=== PATIENT | female | born 1975 | race Caucasian/White ===

== ENCOUNTER 2017-12-12 14:44 | Emergency (ER) | payer OTHER ==
[2017-12-12 15:02] VITALS: BP 142/89
[2017-12-12] MEDS ORDERED: Ketorolac INJ* 60 MG/2 ML VIAL IM ONE (15:13)
--- NOTE | 2017-12-12 15:31 | UC ---
Fabiola Ag Rebecca, scribed for Jason Kenyon MD on 12/12/17 at 1515 . Back Pain HPI - HPI Summary HPI Summary: Pt is a 42 y/o F who presents to [facility] c/o left upper back pain. Sx began about 1 hour [employer] after the pt had opened a curtain with the left arm. Pain is currently severe, ranked 10/10 and characterized as sharp. Pt reports that there is one area that is particularly painful to palpation. Sx aggravated by movement and palpation, alleviated by nothing. - History of Current Complaint Chief Complaint: UCBackPain Stated Complaint: SHOULDER INJURY Time Seen by Provider: 12/12/17 15:07 Hx Obtained From: Patient Hx Last Menstrual Period: 12/27/17 Onset/Duration: Lasting Hours - 1 hour, Still Present Severity Currently: Severe Pain Intensity: 10 Pain Scale Used: 0-10 Numeric Back Pain: Is Discrete @ - Left upper back Character: Sharp Aggravating Factor(s): Movement, Other - Palpation Alleviating Factor(s): Nothing Associated Signs And Symptoms: Positive: Negative - Allergies/Home Medications Allergies/Adverse Reactions: Allergies Allergy/AdvReac Type Severity Reaction Status Date / Time MS Penicillins [Penicillins] Allergy Severe UNK Verified 06/01/15 08:37 Penicillins Allergy Severe Unknown Verified 12/12/17 15:03 Reaction Details cephalexin Allergy Intermediate Rash Verified 12/12/17 15:03 Home Medications: Home Medications Magnesium Oxide TAB* [MagOx 400 TAB*] 400 mg PO DAILY 12/12/17 [History Confirmed 12/12/17] Omeprazole 20 mg PO DAILY WITH MEAL 12/12/17 [History Confirmed 12/12/17] PMH/Surg Hx/FS Hx/Imm Hx - Additional Past Medical History Additional PMH: PMHx: Arthritis Cardiovascular History: Hypertension Respiratory History: Asthma Other History Of: Negative For: Anticoagulant Therapy - Surgical History Surgical History: Yes Surgery Procedure, Year, and Place: R knee cartilage removal; gall bladder; appendix; ; TUBAL - Family History Known Family History: Positive: Cardiac Disease, Hypertension, Other - Lung CA ( mother), mesothelioma (sister) Negative: Diabetes - Social History Alcohol Use: Occasionally Substance Use Type: None Smoking Status (MU): Never Smoked Tobacco Review of Systems Constitutional: Negative Skin: Negative Eyes: Negative ENT: Negative Respiratory: Negative Cardiovascular: Negative Gastrointestinal: Negative Genitourinary: Negative Motor: Negative Neurovascular: Negative Musculoskeletal: Other: - Left upper back pain Neurological: Negative Psychological: Negative All Other Systems Reviewed And Are Negative: Yes Physical Exam - Summary Physical Exam Summary: VITAL SIGNS: Reviewed. GENERAL: ~Patient is a well developed and nourished female who is lying comfortable in the stretcher. ~Patient is not in any acute respiratory distress. HEAD AND FACE: Normocephalic EYES: PERRLA, EOMI x 2. EARS: Hearing grossly intact. MOUTH: Oropharynx within normal limits. NECK: Supple, trachea is midline, no adenopathy, no JVD, no carotid bruit. CHEST: Symmetric, no tenderness at palpation LUNGS: Clear to auscultation bilaterally. No wheezing or crackles. CVS: Regular rate and rhythm, S1 and S2 present, no murmurs or gallops appreciated. ABDOMEN: Soft, non-tender. Bowel sounds are normal. No abdominal abnormal pulsations. EXTREMITIES: Full ROM in all major joints, no edema, no cyanosis or clubbing. Paraspinal muscle tenderness in the left thoracic spin, which is reproducible with palpation. NEURO: Alert and oriented x 3. No acute neurological deficits. Speech is normal and follows commands. SKIN: Dry and warm Triage Information Reviewed: Yes Vital Signs: Initial Vital Signs Temp 98.8 F 12/12/17 14:55 Pulse 88 12/12/17 14:55 Resp 18 12/12/17 14:55 BP 142/89 12/12/17 14:55 Pulse Ox 100 12/12/17 14:55 Vital Signs Reviewed: Yes Back Pain Course/Dx - Course Course Of Treatment: Pt is a 42 y/o F who presents to [facility] c/o left upper back pain. Sx began about 1 hour [employer] after the pt had opened a curtain with the left arm. Pain is currently severe, ranked 10/10 and characterized as sharp. Pt reports that there is one area that is particularly painful to palpation. Sx aggravated by movement and palpation, alleviated by nothing. The pain is musculoskeletal. Gave the patient Toradol for the pain. I will discharge her with a prescription for Ibuprofen and Robaxin and follow up with PCP. The patient was found to have increased BP in . The patient will follow up with PCP for better control of BP. I discussed all the findings and test results with the patient. Patient was instructed to return to the urgent care or go to ER immediately if any of the symptoms return or worsens. Plan of care was discussed with the patient, and patient understands and agrees. All questions were answered to patient satisfaction. There were no further complaints or concerns. - Differential Dx/Diagnosis Differential Diagnosis/HQI/PQRI: Fracture, Herniated Disc, Strain, Sprain Provider Diagnoses: Upper back pain Discharge - Sign-Out/Discharge Documenting (check all that apply): Discharge/Admit/Transfer - Discharge - Discharge Plan Condition: Stable Disposition: HOME Prescriptions: Ibuprofen TAB* [Motrin TAB* 600 MG] 600 mg PO Q8H PRN #20 tab PRN Reason: Pain Methocarbamol TAB* [Robaxin 500 MG TAB*] 750 mg PO TID PRN #12 tab PRN Reason: Pain Patient Education Materials: Arthralgia (ED), Back Pain (ED) Referrals: [facility] [place] [facility] REFERRAL [Outside] No Primary Care Phys,NOPCP [Primary Care Provider] - Additional Instructions: FOLLOW UP WITH YOUR PRIMARY CARE PROVIDER WITHIN ONE WEEK FOR HIGH BLOOD PRESSURE NOTED TODAY. RETURN TO URGENT CARE OR THE ED FOR ANY WORSENING OR NEW SYMPTOMS. - Billing Disposition and Condition Condition: STABLE Disposition: HOME The documentation as recorded by the Fabiola chavez Rebecca accurately reflects the service I personally performed and the decisions made by , Jason Kenyon MD.
== END 2017-12-12 15:35 | disposition home or self-care (01) ==
LOC: UCEAST 14:44
DX: M54.6 Pain in thoracic spine (principal); I10 Essential (primary) hypertension; J45.909 Unspecified asthma, uncomplicated; Z88.1 Allergy status to other antibiotic agents; Z88.0 Allergy status to penicillin
CPT/HCPCS: 99212; G0463; J1885

== ENCOUNTER 2018-10-10 09:59 | Emergency (ER) | payer OTHER ==
--- NOTE | 2018-10-10 10:24 | ED ---
HPI Chest Pain - HPI Summary HPI Summary: A 43 y/o female brought in by [facility] ambulance presents to [facility] with a chief complaint of chest pain that started out as right shoulder pain the night of 02/20, changing to mid sternal chest pain the morning of 10/10/18 radiating to her left neck. She rates her pain as a 4/10 in severity and describes her chest pain as tightness. She claims that her pain is intermittent. Per triage note, the patient was at the [facility] where she was given 324 mg Aspirin and had a negative EKG. She denies fever, chills, erythema (eyes), sore throat, cough, abdominal pain, vomiting, dysuria, hematuria, back pain, rash and dizziness. The patient reports that she has HTN but has not taking her hydrochlorothiazide and Losartan since April 2018 due to her insurance. She also has not seen her PCP, SUN Camejo, since February 2018. She denies any recent travel, pain radiating into her jaw, or anything that makes her pain better or worse. She reports that she had a cold 3-4 weeks [employer]. She also complains of shortness of breath and nausea. She had a Hx of asthma when she was younger. She claims that her father from an PR at 77 years old, but is unsure if he had any prior MIs. She has a surgical history of an appendectomy, cholecystectomy, , and a cyst removed. Vital signs while in room - HR: 80 bpm, O2 Sat: 99, BP: 138/ 71. - History of Current Complaint Chief Complaint: EDChestPainROMI Hx Obtained From: Patient, EMS Hx Last Menstrual Period: 12/27/17 Onset/Duration: Started Hours Ago, Still Present Timing: Intermittent, Lasting Minutes Initial Severity: Moderate Current Severity: Moderate Pain Intensity: 4 Pain Scale Used: 0-10 Numeric Chest Pain Location: Mid Sternal Chest Pain Radiates: Yes Chest Pain Radiates To:: Neck - left side Character: Tightness Aggravating Factor(s): Nothing Alleviating Factor(s): Nothing Associated Signs and Symptoms: Positive: Shortness of Breath, Nausea. Negative : Dizziness, Fever, Chills, Cough, Abdominal Pain, Edema - Allergy/Home Medications Allergies/Adverse Reactions: Allergies Allergy/AdvReac Type Severity Reaction Status Date / Time Penicillins Allergy Severe Unknown Verified 10/10/18 10:08 Reaction Details cephalexin Allergy Intermediate Rash Verified 10/10/18 10:08 hydromorphone [From Dilaudid] Allergy Rash Verified 10/10/18 10:08 Home Medications: Home Medications Naproxen 500 mg PO BID 10/10/18 [History Confirmed 10/10/18] PMH/Surg Hx/FS Hx/Imm Hx Endocrine/Hematology History: Denies: Hx Anticoagulant Therapy, Hx Diabetes, Hx Thyroid Disease Cardiovascular History: Reports: Hx Hypertension - stoped meds yesterday Denies: Hx Pacemaker/ICD Respiratory History: Reports: Hx Asthma - A CHILD Denies: Hx Chronic Obstructive Pulmonary Disease (COPD) History: Denies: Hx Renal Disease Neurological History: Denies: Hx Dementia, Hx Seizures Psychiatric History: Denies: Hx Substance Abuse - Surgical History Surgery Procedure, Year, and Place: R knee cartilage removal; gall bladder; appendix; ; TUBAL; cyst removed - Immunization History Date of Tetanus Vaccine: UNK Date of Influenza Vaccine: UNK Infectious Disease History: No Infectious Disease History: Denies: Hx Hepatitis, Hx Human Immunodeficiency Virus (HIV), History Other Infectious Disease, Traveled Outside the [place] in Last 30 Days - Family History Known Family History: Positive: Cardiac Disease, Hypertension, Other - Lung CA ( mother), mesothelioma (sister) Negative: Diabetes - Social History Alcohol Use: Occasionally Substance Use Type: Reports: None Smoking Status (MU): Never Smoked Tobacco Review of Systems Negative: Fever, Chills Negative: Erythema Negative: Sore Throat Positive: Chest Pain Positive: Shortness Of Breath. Negative: Cough Positive: Nausea. Negative: Abdominal Pain, Vomiting Negative: dysuria, hematuria Positive: Arthralgia - right shoulder pain. Negative: Myalgia, Edema Negative: Rash Neurological: Negative - dizziness All Other Systems Reviewed And Are Negative: Yes Physical Exam - Summary Physical Exam Summary: Constitutional: Obese, Alert. (-) Distressed Skin: Warm, Dry HENT: Normocephalic; Atraumatic Eyes: Conjunctiva normal Neck: Musculoskeletal ROM normal neck. (-) JVD, (-) Stridor, (-) Tracheal deviation Cardio: Rhythm regular, rate normal, Heart sounds normal; Intact distal pulses; The pedal pulses are 2+ and symmetric. Radial pulses are 2+ and symmetric. (-) Murmur Pulmonary/Chest wall: Effort normal. (-) Respiratory distress, (-) Wheezes, (-) Rales Abd: Soft, (-) tenderness, (-) Distension, (-) Guarding, (-) Rebound Musculoskeletal: (-) Edema Lymph: (-) Cervical adenopathy Neuro: Alert, Oriented x3 Psych: Mood and affect Normal Triage Information Reviewed: Yes Vital Signs On Initial Exam: Initial Vitals Pulse Pulse Ox 84 99 10/10/18 10:04 10/10/18 10:04 Vital Signs Reviewed: Yes Diagnostics - Vital Signs Vital Signs Temp Pulse Resp BP Pulse Ox 10/10/18 10:06 80 138/71 99 10/10/18 10:05 98.8 F 79 18 138/71 98 10/10/18 10:04 84 99 - Laboratory Result Diagrams: 10/10/18 10:31 10/10/18 12:22 Lab Statement: Any lab studies that have been ordered have been reviewed, and results considered in the medical decision making process. - Radiology CXR Radiology Interpretation Completed By: Radiologist Summary of Radiographic Findings: No evidence for acute intrathoracic disease. ED physician has reviewed this imaging report. - EKG 10:06 Cardiac Rate: NL - 79 bpm EKG Rhythm: Sinus Rhythm Summary of EKG Findings: EKG at 10:06 showed Normal sinus rhythm at 79 bpm, no STEMI. Re-Evaluation - Re-Evaluation First Eval Re-Evaluation Time: 13:00 Change: Unchanged Comment: Albuterol had no effect on chest tightness, switching to NTG at this point Second Eval Re-Evaluation Time: 14:14 Change: Improved Comment: some improvement with NTG. Third Eval Re-Evaluation Time: 15:54 Change: Unchanged Comment: updated her on discharge, encouraged her to return to the ED for changing or worsening symptoms. Chest Pain Course/Dx - Course Course Of Treatment: A 43 y/o female brought in by [facility] ambulance presents to [facility] with a chief complaint of chest pain that started out as right shoulder pain the night of 10/09/18, changing to mid sternal chest pain the morning of radiating to her left neck. She rates her pain as a 4/10 in severity and describes her chest pain as tightness. Her pain is intermittent. She also c/o nausea and shortness of breath. She has a Hx of HTN. She claims that her father of an PR at 77 y/o, but is unsure if he had any prior MIs. The physical exam was unremarkable other than that the patient was obese. In the ED course the patient was given 2.5 mg Albuterol INH at 10:33 10/10/18. EKG at 10:06 showed Normal sinus rhythm at 79 bpm, no STEMI. CXR impression: No evidence for acute intrathoracic disease. ED physician has reviewed this imaging report. Bloodwork and chemistries obtained and are WNL. She was given 0.4 mg Nitroglycerin SL at 13:01, which showed some improvement. Case discussed with Dr. Ziegler, hospitalist, who after seeing results recommends discharge and follow up with PCP. HEART Score calculated to be 2, low risk for coronary event. Recommend outpatient follow up for chest tightness. Also incidentally her troponin is negative, the hospital does not have stress test capability this weekend and we are unable to schedule stress test today. Pt has had adverse effect from Losartan previously, will prescribe Lisinopril. D-dimer is negative, consider reflux. No abdominal tenderness to suggest cholecystitis. The patient will be discharged with follow up with [facility] clinic, and is agreeable with this plan. - Diagnoses Provider Diagnoses: Chest pain, unspecified, Non compliance w medication regimen - Provider Notifications Discussed Care Of Patient With: El Ziegler Time Discussed With Above Provider: 14:22 Instructed by Provider To: Other - Will wait for further results to decide upon admission or discharge with PCP follow up. Then recommended discharge with PCP follow up. Discharge - Sign-Out/Discharge Documenting (check all that apply): Patient Departure - DC Patient Received Moderate/Deep Sedation with Procedure: No - Discharge Plan Condition: Stable Disposition: HOME Prescriptions: Famotidine TAB* [Pepcid 20 MG TAB*] 40 mg PO DAILY #14 tab Famotidine TAB* [Pepcid 20 MG TAB*] 40 mg PO BID #60 tab Lisinopril TAB* [Prinivil TAB 10 MG*] 10 mg PO DAILY #30 tab Patient Education Materials: Chest Pain (DC) Referrals: [facility] [place] [facility] REFERRAL [Outside] [facility] [Outside] (2-3 days) Additional Instructions: RETURN TO THE EMERGENCY DEPARTMENT FOR CHANGING OR WORSENING SYMPTOMS - Billing Disposition and Condition Condition: STABLE Disposition: Home - Attestation Statements Document Initiated by Scribe: Yes Documenting Scribe: Chon Rossi Provider For Whom Scribe is Documenting (Include Credential): Rm Jimenez MD Scribe Attestation: I, Chon Rossi, scribed for Rm Jimenez MD on 10/10/18 at 2231. Scribe Documentation Reviewed: Yes Provider Attestation: The documentation as recorded by the Chon chavez accurately reflects the service I personally performed and the decisions made by me, Rm Jimenez MD Status of Scribe Document: Viewed
[2018-10-10] MEDS ORDERED: Albuterol 2.5 MG/3 ML NEB.SOL* (0.083%) INH ONE (10:33)
[2018-10-10 10:57] LABS: ABS Basophils 0 10^3/ul (0-0.2); ABS Eosinophils 0.1 10^3/ul (0-0.6); ABS Lymphocytes 1.7 10^3/ul (1.0-4.8); ABS Monocytes 0.5 10^3/ul (0-0.8); ABS Neutrophils 3.2 10^3/ul (1.5-7.7); ABS Nucleated RBC 0 10^3/ul; Eosinophil % 2.5 %; Hematocrit 41 % (35-47); Hemoglobin 13.3 g/dl (12.0-16.0); Lymphocyte % 30.8 %; Mean Corpuscular HGB Conc 32 g/dl (31-36); Mean Corpuscular Hemoglobin 28 pg (27-31); Mean Corpuscular Volume 86 fL (80-97); Mean Platelet Volume 10.2 fL (7.4-10.4); Nucleated Red Blood Cells % 0.1; Platelet Count 154 10^3/ul (150-450); Red Cell Distribution Width 14 % (10.5-15); White Blood Count 5.5 10^3/ul (3.5-10.8)
[2018-10-10 11:37] LABS: CO2 Carbon Dioxide 21 mmol/L (22-32); Calcium 8.8 mg/dL (8.6-10.3); Chloride 108 mmol/L (101-111); Sodium 137 mmol/L (135-145)
[2018-10-10 11:41] LABS: Anion Gap 8 mmol/L (2-11)
[2018-10-10 11:43] LABS: ALT 30 U/L (7-52); Albumin/Globulin Ratio 1.4 (1-3); Alkaline Phosphatase 58 U/L (34-104); BUN/Creatinine Ratio 18.3 (8-20); Blood Urea Nitrogen 13 mg/dL (6-24); EGFR African American 108.2 (>60); EGFR Non-African American 89.4 (>60); Globulin 2.8 g/dL (2-4); Glucose 92 mg/dL (70-100); Total Protein 6.8 g/dL (6.4-8.9)
[2018-10-10 12:56] LABS: Potassium Redraw 3.9 mmol/L (3.5-5.0)
[2018-10-10 12:57] VITALS: BP 122/82
[2018-10-10] MEDS ORDERED: Nitroglycerin TAB 0.4 MG* 0.4 MG TAB SL ONE (13:01)
[2018-10-10] MEDS ORDERED: Lidocaine 2% VISCOUS* 15 ML UDC PO ONE (15:22)
[2018-10-10] MEDS ORDERED: Al Hydrox/Mg Hydrox/Simet LIQ* 30 ML UDC PO ONE (15:22)
== END 2018-10-10 16:01 | disposition home or self-care (01) ==
LOC: ED 09:59
DX: R07.9 Chest pain, unspecified (principal); Z91.14 Patient's other noncompliance with medication regimen; I10 Essential (primary) hypertension; Z82.49 Family history of ischemic heart disease and other diseases of the circulatory system; Z88.0 Allergy status to penicillin; R06.02 Shortness of breath
CPT/HCPCS: 36415; 71045; 80053; 80061; 83036; 83605; 84484; 85025; 85379; 93005; 99284; A9270-GY